=== PATIENT | female | born 1950 | race Caucasian/White ===

== ENCOUNTER → 2021-07-31 | Outpatient (CLI) | payer MEDICARE, OTHER ==
[~2021-07-31] MED LIST: ATENOLOL100 MG PO; CYCLOBENZAPRINE5 MG PO; ELIQUIS2.5 MG PO; FLEXERIL 10 MG10 MG PO; GLUCOPHAGE500 MG PO; HYDRALAZINE HCL25 MG PO; HYDROCHLOROTHIA25 MG PO; KEFLEX CAP 500500 MG PO; LYRICA150 MG PO; MUCINEX600 MG PO; OMNICEF 300 MG300 MG PO; RALOXIFENE HCL60 MG PO; ROPINIROLE HC0.25 MG PO; XANAX1 MG PO; ZESTRIL40 MG PO
== END ==
LOC: EXRD 13:03
DX: I73.9 Peripheral vascular disease, unspecified (principal); R25.2 Cramp and spasm
CPT/HCPCS: 93925

== ENCOUNTER → 2021-09-24 | Outpatient (CLI) | payer MEDICARE, OTHER | LOC: HEART CORB 09:00 | DX: I10 Essential (primary) hypertension (principal); E78.5 Hyperlipidemia, unspecified; E11.9 Type 2 diabetes mellitus without complications; I08.8 Other rheumatic multiple valve diseases | CPT/HCPCS: 93306 ==

== ENCOUNTER → 2021-11-12 | Outpatient (CLI) | payer MEDICARE, OTHER | LOC: HEART CORB 09:24 | DX: R06.02 Shortness of breath (principal); I20.8 Other forms of angina pectoris; I47.2 Ventricular tachycardia | CPT/HCPCS: 78452; A9502; J2785 ==